=== PATIENT | female | born 1985 | race Caucasian/White ===

== ENCOUNTER 2019-03-22 17:40 | Inpatient (IN) | payer BC ==
[2019-03-22] MEDS ORDERED: LIDOCAINE 0.5% (PF) 5 MG/ML (50 ML SDV) SQ PRN (17:55)
[2019-03-22] MEDS ORDERED: OXYTOCIN 10 UNIT/ML 1 ML VIAL IM PRN (17:55)
[2019-03-22] MEDS ORDERED: TERBUTALINE 1 MG/ML VIAL SQ PRN (17:55)
[2019-03-22] MEDS ORDERED: METHYLERGONOVINE 0.2 MG/ML 1 ML AMP IM PRN (17:55)
[2019-03-22] MEDS ORDERED: CARBOPROST TROMETHAMINE 250 MCG/ML 1 ML AMP IM PRN (17:55)
[2019-03-22] MEDS ORDERED: BUTORPHANOL 1 MG/ML 1 ML VIAL IV PRN (17:57)
[2019-03-22] MEDS ORDERED: LACTATED RINGERS 1,000 ML IV SCH (18:00)
--- NOTE | 2019-03-22 18:04 | P.HPOB ---
History of Present Illness H&P Date: 03/22/19 Chief Complaint: 41-3/7 weeks, active labor The patient is a 33-year-old 3 para 2001 admitted at 41-3/7 weeks by good dating parameters. She is admitted in active labor with all signs reassuring. Her has been uncomplicated though she was found to have a fetus with a single umbilical artery and has had reassuring weekly testing since 32 weeks. She is also known to be Rh- and received RhoGAM at 28 weeks. Group B strep status is negative. Obstetrical history: 3 para 2001 with 2 previous normal vaginal deliveries without complications. Current statistics are listed in history of present illness. EDC of 03/12/2019 was established by last menstrual period and confirmed by second trimester ultrasound. Laboratory workup demonstrates a blood type of O- with a negative antibody screen. Rubella status is immune. Remainder of the laboratory workup was within normal limits. One hour Glucola is normal and group B strep status is negative. Gynecologic history: Unremarkable with no history of any infections to include STDs. Review of Systems Review of systems is confined to history of present illness. Past Medical History Past Medical History: No Reported History History of Any Multi-Drug Resistant Organisms: None Reported Past Surgical History: No Surgical Hx Reported Past Anesthesia/Blood Transfusion Reactions: No Reported Reaction Past Psychological History: No Psychological Hx Reported Smoking Status: Never smoker - Past Family History Father Family Medical History: No Reported History Medications and Allergies Home Medications Medication Instructions Recorded Confirmed Type Muq-Dxeo-Qdcuc Acid 1 each PO DAILY 08/10/14 08/10/14 History [-U Capsule] Ibuprofen [Motrin] 600 mg PO Q6HR PRN #0 tab 02/28/16 Rx Sennosides-Docusate Sodium 2 each PO BID@0800,2000 #0 tab 02/28/16 Rx [Senokot-S] Allergies Allergy/AdvReac Type Severity Reaction Status Date / Time No Known Allergies Allergy Verified 08/10/14 18:34 Exam In general, this is a well-developed, well-nourished white female in discomfort as she is in active labor. Her heart has a regular rhythm and rate without murmur. Her lungs are clear to auscultation bilaterally in all [place]. Her abdomen is gravid, nondistended, has normal active bowel sounds, soft, nontender, without any palpable masses aside from uterine fundus. Her extremities are without any cyanosis, clubbing, or significant edema and are nontender to palpation bilaterally. Digital cervical examination demonstrates her cervix to be 5 cm dilated, 90% effaced, the vertex in presentation at -2 station. Assessment and Plan (1) Post-dates Current Visit: Yes Status: Acute Code(s): O48.0 - POST-TERM SNOMED Code(s): 59123391 (2) Spontaneous onset of labor Current Visit: No Status: Acute Code(s): BTM5326 - SNOMED Code(s): 13001114 Plan: The patient is admitted for active management of labor. She was actually scheduled for induction tomorrow morning. She will have close maternal and surveillance and expectant management will be practiced. She is a good candidate for either IV or epidural analgesia, whichever she may choose.
[2019-03-22 18:07] LABS: Basophils % (A) 0 %; Eosinophils # (A) 0.2 k/uL (0-0.7); Eosinophils % (A) 1 %; HCT 43.7 % (34.0-46.0); HGB 14.7 gm/dL (11.4-16.0); Lymphocytes % (A) 15 %; MCH 30.8 pg (25.0-35.0); MCHC 33.6 g/dL (31.0-37.0); MCV 91.8 fL (80.0-100.0); Mean Platelet Volume 8.9; Monocytes # (A) 0.4 k/uL (0-1.0); Monocytes % (A) 3 %; Neutrophils # (A) 10.5 k/uL (1.3-7.7); Neutrophils % (A) 79 %; Platelet Count 222 k/uL (150-450); RBC 4.76 m/uL (3.80-5.40); RDW 12.9 % (11.5-15.5); WBC 13.3 k/uL (3.8-10.6)
[2019-03-22] MEDS ORDERED: SODIUM CHLORIDE 0.9% 100 ML BAG ONE (18:17)
[2019-03-22] MEDS ORDERED: fentaNYL (PF) 50 MCG/ML 5 ML AMP ONE (18:17)
[2019-03-22] MEDS ORDERED: ROPIVACAINE 5MG/ML 20ML VIAL ONE (18:17)
[2019-03-22 18:28] VITALS: BMI 32.5
[2019-03-22] MEDS ORDERED: OXYTOCIN 30 UNITS/500 ML NS 30 UNIT in SALINE 1 500ML.BAG IV SCH (20:15)
[2019-03-22] MEDS ORDERED: HYDROcodone/APAP 7.5-325MG 1 EACH TAB PO PRN (21:00)
[2019-03-22] MEDS ORDERED: LANOLIN CREAM 5 GM TUBE TOPICAL PRN (21:00)
[2019-03-22] MEDS ORDERED: diphenhydrAMINE 50 MG CAP PO PRN (21:00)
[2019-03-22] MEDS ORDERED: SIMETHICONE 80 MG CHEWABLE PO PRN (21:00)
[2019-03-22] MEDS ORDERED: HYDROCORTISONE 2.5% RECTAL CREAM 30 GM TUBE RECTAL PRN (21:00)
[2019-03-22] MEDS ORDERED: diphenhydrAMINE 50 MG/ML 1 ML VIAL IVP PRN ×2 (21:00)
[2019-03-22] MEDS ORDERED: WITCH HAZEL 1 EACH MED..PAD TOPICAL PRN (21:00)
[2019-03-22] MEDS ORDERED: ACETAMINOPHEN TAB 325 MG TAB PO PRN (21:00)
[2019-03-22] MEDS ORDERED: HYDROcodone/APAP 5-325MG 1 EACH TAB PO PRN (21:00)
[2019-03-22] MEDS ORDERED: diphenhydrAMINE 25 MG CAP PO PRN (21:00)
[2019-03-22] MEDS ORDERED: BENZOCAINE/MENTHOL SPRAY 1 GM/SPRAY AEROSOL TOPICAL PRN (21:00)
[2019-03-22] MEDS ORDERED: OXYTOCIN 20 UNITS/1000 ML NS 1,000 ML IV SCH (21:00)
[2019-03-22] MEDS ORDERED: ZOLPIDEM 5 MG TAB PO PRN (21:00)
--- NOTE | 2019-03-22 21:05 | P.PROBDLV ---
Vaginal Delivery Note - . Vaginal Delivery Note: The patient is a 33-year-old 3 para 2001 admitted at 41-4/7 weeks by good dating parameters. She is admitted in early active labor with all signs reassuring. Her has been entirely uncomplicated though she is Rh- and received RhoGAM. She additionally is known to have a fetus with a single umbilical artery for which testing has been reassuring throughout the . On labor and delivery, she had an epidural catheter placed for analg esia and then underwent artificial rupture of membranes demonstrating clear fluid. As she made minimal cervical change after that, Pitocin augmentation was started. She progressed to complete fairly quickly and pushed over 2 contractions to a normal spontaneous vaginal delivery of a viable 7 lbs. 11 oz. baby boy with Apgars of 9 at 1 minute and 9 at 5 minutes delivered in the left occiput anterior position. cord blood was collected for evaluation for the necessity of RhoGAM. The placenta was delivered spontaneously, intact, and grossly normal though there was a moderate amount of calcification present with a grossly normal, centrally inserted 2 vessel cord. There were no lacerations of the perineum, vagina, or cervix. Estimated blood loss for the case was approximately 100 mL. All sponge, instrument, and needle counts were correct. Both mother and are resting comfortably in recovery.
[2019-03-22] MEDS ORDERED: Rhogam IMMUNE GLOBULIN 1,500 UNIT/1 ML IM ONE (23:19)
[2019-03-22] MEDS: IBUPROFEN 600 MG TAB PO PRN (23:41)
[2019-03-23] MEDS: IBUPROFEN 600 MG TAB PO PRN ×3 (07:47→19:45)
[2019-03-23] MEDS: SENNOSIDES-DOCUSATE SODIUM 1 EACH TAB PO SCH ×2 (07:47→19:45)
[2019-03-23 09:03] VITALS: RESP 16
--- NOTE | 2019-03-23 12:25 | P.DS ---
Providers Date of admission: 03/22/19 17:46 Expected date of discharge: 03/23/19 Attending physician: She Dumas Primary care physician: Stated None - Discharge Diagnosis(es) (1) Normal vaginal delivery Current Visit: Yes Status: Acute (2) Post-dates Current Visit: Yes Status: Acute (3) Rh negative, maternal Current Visit: Yes Status: Acute (4) Spontaneous onset of labor Current Visit: Yes Status: Acute Hospital Course: This is a 33-year-old 3 now para 3 woman who presented in spontaneous active labor at 41-3/7 weeks gestation. She underwent artificial rupture of membranes with clear fluid. She received an epidural anesthetic and Pitocin augmentation of labor. She went on to have a rapid delivery of a liveborn male infant over an intact perineum with Apgars of 9 at 1 minute and 9 at 5 minutes weighing 7 lbs. 11 oz. Her course was unremarkable. By day #1 she was ambulating and voiding without difficulty, she had minimal lochia and her vital signs were stable. [place] circumcision was performed. She was therefore discharged home with routine instructions for care and foll ow-up. Procedures: Normal spontaneous vaginal delivery Patient Condition at Discharge: Good Plan - Discharge Summary Discharge Rx Participant: No New Discharge Prescriptions: No Action Xon-Ogfq-Rpdkx Acid [-U Capsule] 1 each PO DAILY Discharge Medication List Kfq-Prvx-Zkmoo Acid [-U Capsule] 1 each PO DAILY 08/10/14 [History] Follow up Appointment(s)/Referral(s): She Dumas MD [STAFF PHYSICIAN] - 6 Weeks Activity/Diet/Wound Care/Special Instructions: Follow-up in the office in 6 weeks . Call with any concerning signs or symptoms including heavy vaginal bleeding, severe abdominal pain, fever greater than 101, swelling or redness of the lower extremities, foul vaginal discharge, or signs of depression. Nothing in the vagina for 6 weeks after delivery, specifically no intercourse. Discharge Disposition: HOME SELF-CARE
[2019-03-23 16:12] VITALS: BP 122/73; PULSE 75; TEMP 98.7
== END 2019-03-23 21:30 | disposition home or self-care (01) | DRG 807 ==
LOC: FBPOP 17:40 → 4FBP 17:46
PROVIDERS: ADMIT Obstetrics & Gynecology; ATTEND Obstetrics & Gynecology
PROC: 10E0XZZ Delivery of Products of Conception, External Approach (ICD-10-PCS; principal; 2019-03-22)
PROC: 3E0234Z Introduction of Serum, Toxoid and Vaccine into Muscle, Percutaneous Approach (ICD-10-PCS; 2019-03-22)
DX: O48.0 Post-term pregnancy (principal); Z37.0 Single live birth; O26.893 Other specified pregnancy related conditions, third trimester; Z67.41 Type O blood, Rh negative; Z3A.41 41 weeks gestation of pregnancy; Z79.899 Other long term (current) drug therapy; O62.3 Precipitate labor
CPT/HCPCS: 85025; 85461; 86850; 86900; 86901

== ENCOUNTER 2020-12-10 20:01 | Outpatient (CLI) | payer BC ==
[2020-12-10 21:38] VITALS: BP 124/69; PULSE 92; RESP 16; TEMP 97.6
--- NOTE | 2020-12-25 11:22 | P.MSEPDOC ---
Presenting Problems - Arrival Data Date of Arrival on Unit: 12/10/20 Time of Arrival on Unit: 20:01 Mode of Transport: Ambulatory - Complaint OB-Reason for Admission/Chief Complaint: Possible Onset of Labor Comment: pt. present to [facility] due to contractions that started around 6:30pm tonight and are every 4min, pt. denies leaking of fluid or bleeding, no complication this . cervix 3cm, 50%, -3 and remained unchanged in an hour, reactive NST, contractions every 4-5 min patient rating 3/10. Medical History - Information : 4 Para: 3 Term: 3 : 0 Abortions: Spontaneous or Elective: 0 Number of Living Children: 3 - Gestational Age Gestational Age by KATI (wks/days): 40 Weeks and 6 Days Review of Systems - Review of Systems Constitutional: No problems Breast: No problems ENT: No problems Cardiovascular: No problems Respiratory: No problems Gastrointestinal: No problems Genitourinary: No problems Musculoskeletal: No problems Neurological: No problems Skin: No problems Vital Signs - Temperature Temperature: 97.6 F Temperature Source: Temporal Artery Scan - Pulse Pulse Oximetery Pulse Rate: 92 Pulse Assessment Method: Automatic Cuff - Respirations Respiratory Rate: 16 Oxygen Delivery Method: Room Air O2 Sat by Pulse Oximetry: 98 - Blood Pressure Right Arm Blood Pressure: 124/69 Blood Pressure Mean: 87 Blood Pressure Source: Automatic Cuff Medical Screen Scoring (Pre) - Cervical Exam Dilation: 1-3 cm = 1 Membranes: Intact - Uterine Contractions Frequency: > or = 36 weeks =2 Duration: > 40 seconds = 2 Intensity: Contraction palpated strong = 1 - Maternal Vital Signs Maternal Temperature: N/A Maternal Blood Pressure: N/A Signs of Preeclampsia: N/A Maternal Respirations: N/A - Maternal Trauma Maternal Trauma: N/A - Assessment - Baby A Baseline FHR: 130 Heart Rate - NICHD Category: Category I (Normal) = 0 NST: Reactive Position: N/A Station: N/A - Total Score - Baby A Total Score - Baby A: 6 - Total Score - Baby B Total Score - Baby B: 6 - Total Score - Baby C Total Score - Baby C: 6 - Level of Risk - Baby A Level of Risk - Baby A: Medium (6-9) - Level of Risk - Baby B Level of Risk - Baby B: Medium (6-9) - Level of Risk - Baby C Level of Risk - Baby C: Medium (6-9) Physician Notification (Pre) - Physician Notified Physician Notified Date: 12/10/20 Physician Notified Time: 21:12 New Order Received: Yes - Notification Comment Comment: orders to discharge patient home and follow up in office on friday which is pts. next [place] apt Disposition - Disposition OB Disposition: Discharge to home Discharge Date: 12/10/20 Discharge Time: 21:18 I agree with the RN Medical Screening Exam: Yes Case reviewed; plan agreed upon as documented in EMR&OBIX.: Yes Comments: patient was neither seen nor examined by me Diagnosis: FALSE LABOR AT OR AFTER 37 COMPLETED WEEKS OF GESTATION
== END 2020-12-10 21:18 | disposition home or self-care (01) ==
LOC: FBPOP 20:01
PROVIDERS: ATTEND Obstetrics & Gynecology
DX: O47.1 False labor at or after 37 completed weeks of gestation (principal); Z3A.40 40 weeks gestation of pregnancy
CPT/HCPCS: 59025; 99213

== ENCOUNTER 2020-12-13 05:51 | Inpatient (IN) | payer BC ==
[2020-12-13] MEDS ORDERED: METHYLERGONOVINE 0.2 MG/ML 1 ML AMP IM PRN (06:02)
[2020-12-13] MEDS ORDERED: LIDOCAINE 0.5% (PF) 5 MG/ML (50 ML SDV) SQ PRN (06:02)
[2020-12-13] MEDS ORDERED: TERBUTALINE 1 MG/ML VIAL SQ PRN (06:02)
[2020-12-13] MEDS ORDERED: OXYTOCIN 10 UNIT/ML 1 ML VIAL IM PRN (06:02)
[2020-12-13] MEDS ORDERED: CARBOPROST TROMETHAMINE 250 MCG/ML 1 ML AMP IM PRN (06:02)
[2020-12-13] MEDS ORDERED: OXYTOCIN 30 UNITS/500 ML NS 30 UNIT in SALINE 1 500ML.BAG IV SCH (06:15)
[2020-12-13] MEDS: LACTATED RINGERS 1,000 ML IV SCH ×2 (06:21→14:38)
[2020-12-13 06:42] LABS: Basophils % (A) 0 %; Eosinophils # (A) 0.1 k/uL (0-0.7); Eosinophils % (A) 1 %; HCT 40.6 % (34.0-46.0); HGB 14.2 gm/dL (11.4-16.0); Lymphocytes # (A) 1.8 k/uL (1.0-4.8); Lymphocytes % (A) 17 %; MCH 32.6 pg (25.0-35.0); MCHC 34.9 g/dL (31.0-37.0); MCV 93.5 fL (80.0-100.0); Monocytes # (A) 0.6 k/uL (0-1.0); Monocytes % (A) 5 %; Neutrophils # (A) 8.1 k/uL (1.3-7.7); Neutrophils % (A) 75 %; Platelet Count 194 k/uL (150-450); RBC 4.34 m/uL (3.80-5.40); RDW 12.5 % (11.5-15.5); WBC 10.7 k/uL (3.8-10.6)
[2020-12-13] MEDS ORDERED: SODIUM CHLORIDE 0.9% 100 ML BAG ONE (09:16)
[2020-12-13] MEDS ORDERED: BUPIVACAINE (PF) 0.25% 30 ML VIAL ONE (09:16)
[2020-12-13] MEDS ORDERED: fentaNYL (PF) 50 MCG/ML 5 ML AMP ONE (09:16)
--- NOTE | 2020-12-13 10:02 | P.HPOB ---
History of Present Illness H&P Date: 12/13/20 Chief Complaint: Postdates This is a 35 year old 4 para 3003 woman who is admitted at 41 and one sevenths weeks gestation for postdates induction of labor. Estimated due date is 12/04/2020 based on LMP consistent with early ultrasound. She actually began having regular painful contractions earlier this morning and upon presentation to labor and delivery triage was found to be 5 cm dilated, 60% effaced and the vertex in the -2 station. She has had an uncomplicated and the postdates testing has all been reassuring. Laboratory data: Blood type O-, antibody screen negative, rubella immune, VDRL nonreactive, hep [place] surface antigen negative, gonorrhea and clinic cultures negative, HIV negative, group B strep cultures negative [employer] history: She 4 para 3 with history of term vaginal deliveries in 2013, 2015 and 2018. Review of Systems All systems: negative Past Medical History Past Medical History: No Reported History History of Any Multi-Drug Resistant Organisms: None Reported Past Surgical History: No Surgical Hx Reported Past Anesthesia/Blood Transfusion Reactions: No Reported Reaction Past Psychological History: No Psychological Hx Reported Smoking Status: Never smoker Past Alcohol Use History: None Reported Past Drug Use History: None Reported - Past Family History Father Family Medical History: No Reported History Medications and Allergies Home Medications Medication Instructions Recorded Confirmed Type Ykr-Xnut-Jtpum Acid 1 each PO DAILY 08/10/14 12/13/20 History [-U Capsule] Allergies Allergy/AdvReac Type Severity Reaction Status Date / Time No Known Allergies Allergy Verified 12/10/20 20:03 Exam Vital Signs Temp Pulse Resp BP Pulse Ox 12/13/20 06:01 98.5 F 74 17 123/75 99 Intake and Output 12/12/20 12/13/20 12/13/20 22:59 06:59 14:59 Other: Weight 75.75 kg Upon my initial evaluation this is a visibly uncomfortable, actively laboring female. Targeted physical exam is performed. The cervix is 5 cm dilated, 60% effaced and the vertex in the -3 station. Bulging membranes are ruptured and meconium-stained fluid is noted. heart tones are category 1 and she is devi every 2-4 minutes. Next Results Result Diagrams: 12/13/20 06:00 Abnormal Lab Results - Last 24 Hours (Table) 12/13/20 Range/Units 06:00 WBC 10.7 H (3.8-10.6) k/uL Neutrophils # 8.1 H (1.3-7.7) k/uL Assessment and Plan (1) Post-dates Current Visit: No Status: Acute Code(s): O48.0 - POST-TERM SNOMED Code(s): 11259200 (2) Rh negative, maternal Current Visit: No Status: Acute Code(s): O09.899 - SUPERVISION OF OTHER HIGH RISK PREGNANCIES, UNSP TRIMESTER SNOMED Code(s): 722206801 (3) Meconium in amniotic fluid Current Visit: Yes Status: Acute Code(s): P96.83 - MECONIUM STAINING SNOMED Code(s): 1366890 Plan: 35-year-old 4 para 3003 woman admitted at 41 and one sevenths weeks gestation in active labor also with planned postdates induction of labor. Pitocin augmentation initiated as indicated. Patient have an epidural anesthetic upon request. Anticipate normal spontaneous vaginal delivery.
[2020-12-13] MEDS ORDERED: SIMETHICONE 80 MG CHEWABLE PO PRN (10:05)
[2020-12-13] MEDS ORDERED: diphenhydrAMINE 50 MG/ML 1 ML VIAL IVP PRN ×2 (10:05)
[2020-12-13] MEDS ORDERED: BENZOCAINE/MENTHOL SPRAY 1 GM/SPRAY AEROSOL TOPICAL PRN (10:05)
[2020-12-13] MEDS ORDERED: ZOLPIDEM 5 MG TAB PO PRN (10:05)
[2020-12-13] MEDS ORDERED: diphenhydrAMINE 50 MG CAP PO PRN (10:05)
[2020-12-13] MEDS ORDERED: HYDROCORTISONE 2.5% RECTAL CREAM 30 GM TUBE RECTAL PRN (10:05)
[2020-12-13] MEDS ORDERED: LANOLIN CREAM 5 GM TUBE TOPICAL PRN (10:05)
[2020-12-13] MEDS ORDERED: ACETAMINOPHEN TAB 325 MG TAB PO PRN (10:05)
[2020-12-13] MEDS ORDERED: diphenhydrAMINE 25 MG CAP PO PRN (10:05)
--- NOTE | 2020-12-13 10:05 | P.PROBDLV ---
Vaginal Delivery Note - . Vaginal Delivery Note: Findings: Male infant in the vertex presentation with Apgars of 8 at 1 minute and 9 at 5 minutes weighing 8 lbs. 13 oz. Intact, calcified and meconium- stained placenta. Intact perineum. EBL approximately 100 mL's. Next Delivery summary: This is a 35-year-old 4 para 3003 woman who presented for postdates induction of labor also in early active labor. Upon presentation she was 5 cm dilated. Artificial rupture of membranes is undertaken and meconium-stained fluid was noted. Pitocin augmentation was also initiated. She did progress to 7 cm dilated very rapidly and request an epidural anesthetic. The epidural was placed in the patient returned to supine position she was noted to be completely dilated with strong urge to push. She was repositioned, prepped and draped in modified [place] position. With the maternal effort over the course of 2 contractions she did deliver the vertex from the left occiput anterior position. The nose and mouth were bulb suctioned on the perineum. The anterior followed by the posterior shoulders were delivered without difficulty and the rest of the infant was delivered onto the field. The nose and mouth were further bulb suctioned. The had immediate and vigorous cry and was pink. The infant was placed on the maternal abdomen where the cord was clamped and cut. was taken to the warmer for further assessment and suctioning. Apgars were 8 at 1 minute and 9 at 5 minutes and weight was 8 lbs. 13 oz. An intact, three-vessel cord placenta was then expressed and was noted to be significantly calcified with meconium staining of the membranes. The perineum, cervix and vagina were inspected and no further lacerations were noted. The uterus was massaged and noted to be very firm below the level of the umbilicus. EBL approximately 100 mL's. Both mother and were doing well post delivery in the room.
[2020-12-13 10:32] VITALS: RESP 16
[2020-12-13] MEDS ORDERED: ROPIVACAINE 100 MG, fentaNYL (PF) 200 MCG in SODIUM CHLORIDE 0.9% 76 ML EPIDURAL ONE (10:46)
[2020-12-13] MEDS: IBUPROFEN 600 MG TAB PO SCH ×2 (11:41→17:25)
[2020-12-13] MEDS ORDERED: Rhogam IMMUNE GLOBULIN 1,500 UNIT/1 ML IM ONE (18:29)
[2020-12-13] MEDS: SENNOSIDES-DOCUSATE SODIUM 1 EACH TAB PO SCH (21:28)
[2020-12-14] MEDS: IBUPROFEN 600 MG TAB PO SCH ×2 (01:48→06:36)
[2020-12-14 06:38] LABS: Basophils # (A) 0.1 k/uL (0-0.2); Basophils % (A) 1 %; Eosinophils # (A) 0.1 k/uL (0-0.7); Eosinophils % (A) 1 %; HCT 34.6 % (34.0-46.0); HGB 12.2 gm/dL (11.4-16.0); Lymphocytes # (A) 2.1 k/uL (1.0-4.8); Lymphocytes % (A) 21 %; MCH 32.9 pg (25.0-35.0); MCHC 35.4 g/dL (31.0-37.0); MCV 93.1 fL (80.0-100.0); Mean Platelet Volume 8.8; Monocytes # (A) 0.5 k/uL (0-1.0); Monocytes % (A) 5 %; Neutrophils # (A) 7.1 k/uL (1.3-7.7); Neutrophils % (A) 71 %; Platelet Count 172 k/uL (150-450); RBC 3.72 m/uL (3.80-5.40); RDW 12.7 % (11.5-15.5)
--- NOTE | 2020-12-14 08:43 | P.DS ---
Providers Date of admission: 12/13/20 05:51 Expected date of discharge: 12/14/20 Attending physician: She Dumas Primary care physician: Stated None - Discharge Diagnosis(es) (1) Post-dates Current Visit: No Status: Acute (2) Rh negative, maternal Current Visit: No Status: Acute (3) Meconium in amniotic fluid Current Visit: Yes Status: Acute (4) Normal vaginal delivery Current Visit: No Status: Acute Hospital Course: This is a 35-year-old 4 now fair para 4 woman who was admitted at 41 and one sevenths weeks gestation for postdates induction of labor. She was then early active labor spontaneously upon presentation and was 5 cm dilated. She did require some Pitocin augmentation and underwent artificial rupture of mem branes. Meconium-stained fluid was noted. She then had rapid progression to complete cervical dilation. An epidural anesthetic was placed however she was complete and pushing once the epidural was placed and she did not get any significant relief. She went on to have a rapid delivery of a liveborn male over an intact perineum weighing 8 lbs. 13 oz. with Apgars of 8 at 1 minute and 9 at 5 minutes. Please see the delivery summary for details. The patient's course was unremarkable. By the morning of day #1 she was ambulating and voiding without difficulty. Her lochia was moderate. She was breast-feeding successfully. Her vital signs were stable and her post delivery hemoglobin was within normal limits. She was therefore discharged home with routine instructions for care and follow-up. Patient Condition at Discharge: Good Plan - Discharge Summary New Discharge Prescriptions: No Action Akt-Bpjk-Cwhvj Acid [-U Capsule] 1 each PO DAILY Discharge Medication List Vvk-Hugn-Swbnp Acid [-U Capsule] 1 each PO DAILY 08/10/14 [History] Follow up Appointment(s)/Referral(s): She Dumas MD [STAFF PHYSICIAN] - 6 Weeks Activity/Diet/Wound Care/Special Instructions: Follow-up in the office in 6 weeks . Call with any concerning signs or symptoms including heavy vaginal bleeding, severe abdominal pain, fever greater than 101, swelling or redness of the lower extremities, foul vaginal discharge, or signs of depression. Nothing in the vagina for 6 weeks after delivery, specifically no intercourse. Discharge Disposition: HOME SELF-CARE
[2020-12-14] MEDS: SENNOSIDES-DOCUSATE SODIUM 1 EACH TAB PO SCH (09:15)
[2020-12-14 09:30] VITALS: BP 105/69; PULSE 84; TEMP 98.2
== END 2020-12-14 12:00 | disposition home or self-care (01) | DRG 807 ==
LOC: 4FBP 05:51
PROVIDERS: ADMIT Obstetrics & Gynecology; ATTEND Obstetrics & Gynecology
PROC: 00HU33Z Insertion of Infusion Device into Spinal Canal, Percutaneous Approach (ICD-10-PCS; principal; 2020-12-13)
PROC: 10E0XZZ Delivery of Products of Conception, External Approach (ICD-10-PCS; principal; 2020-12-13)
PROC: 10907ZC Drainage of Amniotic Fluid, Therapeutic from Products of Conception, Via Natural or Artificial Opening (ICD-10-PCS; principal; 2020-12-13)
PROC: 3E0R3NZ Introduction of Analgesics, Hypnotics, Sedatives into Spinal Canal, Percutaneous Approach (ICD-10-PCS; principal; 2020-12-13)
PROC: 3E033VJ Introduction of Other Hormone into Peripheral Vein, Percutaneous Approach (ICD-10-PCS; principal; 2020-12-13)
DX: O48.0 Post-term pregnancy (principal); Z37.0 Single live birth; O62.3 Precipitate labor; O77.0 Labor and delivery complicated by meconium in amniotic fluid; Z3A.41 41 weeks gestation of pregnancy
CPT/HCPCS: 85025; 86850; 86900; 86901; 88307